=== PATIENT | male | born 1955 ===

== ENCOUNTER 2020-11-06 13:53 | Emergency (ER) | payer MEDICARE ==
--- NOTE | 2020-11-06 17:38 | Emergency Department Report ---
ED General Adult HPI - General Chief complaint: Medical Clearance Stated complaint: DIABETES TREATMENT Time Seen by Provider: 11/06/20 17:34 Source: patient Mode of arrival: Ambulatory Limitations: No Limitations - History of Present Illness Initial comments: 65-year-old male patient with history of diabetes presents to the emergency department requesting refills of his medications. Patient states he has been out of his Metformin and Glyburide for approximately 2 weeks. He recently relocated to the [place] from [place] last week and his [employer] insurance is not active yet. He is asymptomatic. Denies fever, chills, nausea, vomiting, increased thirst, urinary frequency, dizziness, syncope. Denies all other complaints at this time. - Related Data Previous Rx's Medication Instructions Recorded Last Taken Type metFORMIN [Glucophage] 500 mg PO BID 7 Days tablet 11/06/20 Unknown Rx Allergies Allergy/AdvReac Type Severity Reaction Status Date / Time No Known Allergies Allergy Unverified 11/06/20 14:09 ED Review of Systems ROS: Stated complaint: DIABETES TREATMENT Other details as noted in HPI Other: GENERAL: Negative for fever. CARDIOVASCULAR: Negative for chest pain. PULMONARY: Negative for shortness of breath. GASTROINTESTINAL: Negative for abdominal pain. MUSCULOSKELETAL: Negative for back pain. NEUROLOGICAL: Negative for headache. INTEGUMENTARY: Negative for rash. ED Past Medical Hx - Past Medical History Hx Diabetes: Yes Hx of Cancer: Yes (prostate) - Surgical History Past Surgical History?: Yes Additional Surgical History: prostate ca - Medications Home Medications: Home Medications Medication Instructions Recorded Confirmed Last Taken Type metFORMIN [Glucophage] 500 mg PO BID 7 Days tablet 11/06/20 Unknown Rx ED Physical Exam - General Limitations: No Limitations - Other Other exam information: General: Awake, appropriately interactive, no acute distress. Neck: Supple. Full range of motion intact. Cardiovascular: Normal peripheral perfusion. Pulmonary: No respiratory distress. Patient is speaking normally without use of accessory muscles. Skin: No apparent rashes or lesions. Neurological: No facial asymmetry. Speech is clear. Follows commands. Patient is alert and oriented. Musculoskeletal: Moves all four extremities spontaneously with normal range of motion. Psych: Cooperative. Appropriate mood and affect. ED Course Vital Signs 11/06/20 17:46 Temperature 98.2 F Pulse Rate 65 Respiratory 19 Rate Blood Pressure 149/76 [Right] O2 Sat by Pulse 97 Oximetry ED Medical Decision Making - Medical Decision Making Patient presents emergency department requesting refills of his diabetes medications. He is asymptomatic. Vital signs are stable. Blood glucose 275 in triage. He appears well-hydrated. He is tolerating oral intake without difficulty. He is ambulatory without assistance. No clinical evidence to suggest hypoglycemic emergency warranting further diagnostic work-up at this t [facility]. Patient will be provided with a 1 week supply of Metformin and referred to local primary care provider for close outpatient follow-up and for refills of his other diabetes medications. Patient expressed understanding and is agreeable to plan of care. Strict return precautions provided. History, exam, diagnostic testing, and current condition do not suggest worrisome pathology to warrant further testing, continued ED treatment, admission, or surgical evaluation at this point. Given the low probability of a significant medical illness, it would be more likely to result in harm than bene fit to perform further testing at this stage. Discussed findings, presumptive diagnosis, need for follow-up and specific signs/symptoms that should prompt immediate return to the emergency department. Instructions were explained in detail to the patient in addition to giving written discharge information. Patient expressed understanding and was given the opportunity to ask questions, all of which were satisfactorily answered prior to discharge home. Critical care attestation.: If time is entered above; I have spent that time in minutes in the direct care of this critically ill patient, excluding procedure time. ED Disposition Clinical Impression: History of diabetes mellitus, Encounter for medication refill Disposition: DC-01 TO HOME OR SELFCARE Is pt being admited?: No Does the pt Need Aspirin: No Condition: Stable Instructions: Type 2 Diabetes Mellitus, Diagnosis, Adult, [id number] Additional Instructions: Continue Metformin as previously prescribed. Follow-up with primary care provider this week. Call tomorrow to schedule an appointment. See referral information below. Return to the emergency department immediately for new or worsening symptoms. Specifically, return to the emergency department immediately for dizziness, lightheadedness, increased thirst, urinary frequency, abdominal pain, mental status changes, or any other concerns. Prescriptions: metFORMIN [Glucophage] 500 mg PO BID 7 Days tablet Referrals: NADEEN LEIGH MD [Staff Physician] - 3-5 Days [facility] [Outside] - 3-5 Days [facility] [Outside] - 3-5 Days [facility] [Outside] - 3-5 Days [facility] [Provider Group] - 3-5 Days Time of Disposition: 17:38
[2020-11-06 17:47] VITALS: BP 149/76
== END 2020-11-06 18:16 | disposition home or self-care (01) ==
LOC: ED 13:53
DX: E11.9 Type 2 diabetes mellitus without complications (principal); Z76.0 Encounter for issue of repeat prescription; Z98.890 Other specified postprocedural states; Z79.84 Long term (current) use of oral hypoglycemic drugs
CPT/HCPCS: 82962; 99282